=== PATIENT | male | born 1980 ===

== ENCOUNTER 2018-05-16 23:56 | Emergency (ER) | payer SELFPAY ==
[2018-05-17 00:50] LABS: URINE BILIRUBIN NEGATIVE (NEGATIVE); URINE BLOOD NEGATIVE (NEGATIVE); URINE CLARITY Clear (Clear); URINE COLOR Yellow (YELLOW); URINE GLUCOSE (UA) NORMAL (Normal); URINE LEUKOCYTE ESTERASE NEG Leu/uL (Negative); URINE PROTEIN NEGATIVE (NEGATIVE)
--- NOTE | 2018-05-17 01:18 | C.PDOC ---
History Of Present Illness 37 year old male presents to the ED c/o pain to his left inguinal area radiating to his left testicle for the past 2 days. Patient describes his pain as intermittent, sharp. Patient states pain worsened tonight. Patient denies injury, fall, trauma, extraneous activity, UTI symptoms, back pain, abdominal pain. Time Seen by Provider: 05/17/18 00:12 Chief Complaint (Nursing): Groin Pain History Per: Patient History/Exam Limitations: no limitations Onset/Duration Of Symptoms: Days (2), Intermittent Episodes Current Symptoms Are (Timing): Still Present Location Of Pain/Discomfort: Other (inguinal) Radiation Of Pain To:: Other (testicle) Quality Of Discomfort: Sharp Associated Symptoms: denies: Nausea, Vomiting, Diarrhea, Urinary Symptoms Recent travel outside of the [place]: No Additional History Per: Patient Past Medical History Reviewed: Historical Data, Nursing Documentation, Vital Signs Vital Signs: Last Vital Signs Temp 98.1 F 05/17/18 00:02 Pulse 68 05/17/18 00:02 Resp 20 05/17/18 00:02 BP 119/72 05/17/18 00:02 Pulse Ox 97 05/17/18 00:02 - Medical History PMH: No Chronic Diseases Surgical History: No Surg Hx Family History: States: Unknown Family Hx - Social History Hx Alcohol Use: No Hx Substance Use: No Review Of Systems Constitutional: Negative for: Fever, Chills Cardiovascular: Negative for: Chest Pain Respiratory: Negative for: Shortness of Breath Gastrointestinal: Negative for: Nausea, Vomiting, Abdominal Pain Genitourinary: Positive for: Scrotal Pain, Other (iguinal pain) Musculoskeletal: Negative for: Back Pain Neurological: Negative for: Weakness, Numbness Physical Exam - Physical Exam Appears: Non-toxic, No Acute Distress Skin: Normal Color, Warm, Dry Head: Atraumatic, Normacephalic Eye(s): bilateral: Normal Inspection Neck: Normal ROM, Supple Chest: Symmetrical Cardiovascular: Rhythm Regular Respiratory: Normal Breath Sounds, No Rales, No Rhonchi, No Wheezing Gastrointestinal/Abdominal: Soft, No Tenderness, No Guarding, No Rebound Back: No CVA Tenderness Male Genital: Testicular Tenderness (left), Inguinal Tenderness (left), Inguinal Swelling (minimal), Other (no hernia, mass bulging, erythema, warmth) Extremity: Normal ROM, No Tenderness, No Swelling Neurological/Psych: Oriented x3, Normal Speech, Normal Cognition Gait: Steady ED Course And Treatment O2 Sat by Pulse Oximetry: 97 (ON RA) Pulse Ox Interpretation: Normal - CT Scan/US Testicular US Other Rad Studies (CT/US): Read By Radiologist, Radiology Report Reviewed CT/US Interpretation: Ultrasound of scrotum/testicles. Indication: Pain. Technique: Real-time ultrasound images with Doppler evaluation. Findings: Right testicle measures 4x2.1x2.3 cm. Left testicle measures 4.1x1.7x2.9 cm. No evidence of testicular torsion. Left inguinal tenderness is identified during sonographic evaluation. Left testicular benign chronic calcification is noted. Normal bilateral testicular flow is identified. Normal right epididymis. Normal left epididymis. Impression: Normal testicles. Left testicular benign chronic lesion. Mild bilateral hydroceles. . Electronically signed on May 17, 2018 2:02:58 AM EDT by: Glenn Wheat M.D., Certified by ABR, MSK, Neuroradiology Progress Note: Plan: - Motrin 600 mg PO. - UA. - Testicular US Disposition Counseled Patient/Family Regarding: Diagnosis, Need For Followup - Disposition Referrals: Taurus Jurado MD [Staff Provider] - Disposition: HOME/ ROUTINE Disposition Time: 02:27 Condition: STABLE Additional Instructions: Please follow up with PMD/ Urology Take Tylenol or motrin for pain Return to ER if worse Instructions: How to Perform a Testicular Self-Exam Forms: [facility] (Estonian), Work Excuse - Clinical Impression Clinical Impression: Testicular pain, left - PA / COMBINATION MAN / Resident Statement MD/DO has reviewed & agrees with the documentation as recorded. - Scribe Statement The provider has reviewed the documentation as recorded by the Scribe Sherwin Prather All medical record entries made by the Scribe were at my direction and personally dictated by me. I have reviewed the chart and agree that the record accurately reflects my personal performance of the history, physical exam, medical decision making, and the department course for this patient. I have also personally directed, reviewed, and agree with the discharge instructions and disposition.
--- NOTE | 2018-05-17 10:01 | US ---
Date of service: 05/17/2018 HISTORY: Pain, swelling left testicular area TECHNIQUE: Realtime sonography through the scrotum with color and doppler flow. COMPARISON: None Available. FINDINGS: RIGHT TESTICLE: Measures 4.0 x 2.1 x 2.3 cm. Normal echotexture and flow. RIGHT EPIDIDYMIS: Epididymal head measures 0.9 x 0.8 x 0.9 cm. Grossly unremarkable appearance with normal flow. LEFT TESTICLE: Measures 4.2 x 1.7 x 2.9 cm. Normal echotexture and flow. There is a small calcification in the upper pole. LEFT EPIDIDYMIS: Epididymal head measures 0.8 x 1.0 x 1.2 cm. Grossly unremarkable appearance with normal flow. HYDROCELE: There is a small left hydrocele. VARICOCELE: None. OTHER FINDINGS: None. IMPRESSION: Small left hydrocele. No evidence for testicular mass, torsion or varicocele. A preliminary report was provided by [email or web address].
[2018-05-17 10:35] VITALS: BP 119/76; PULSE 75; RESP 18; TEMP 98.1; O2SAT 99
== END 2018-05-17 02:52 | disposition home or self-care (01) ==
LOC: C.ER 23:56
DX: N50.812 Left testicular pain (principal)